=== PATIENT | female | born 1950 | race Caucasian/White ===

== ENCOUNTER 2022-01-29 13:43 | Outpatient (CLI) | payer MEDICARE, SELFPAY ==
[2022-01-29 17:07] LABS: Creatinine Urine 62.9 mg/dL
[2022-01-29 17:11] LABS: Albumin* 4.8 g/dL (3.3-5.0); Chloride* 98 mmol/L (96-114); Potassium* 4.3 mmol/L (3.6-5.1); Sodium* 134 mmol/L (135-149)
[2022-01-29 17:13] LABS: Microalbumin Creatinine Ratio 10 mg/g (0-30); Microalbumin Urine < 1 mg/dL
[2022-01-29 17:14] LABS: Blood Urea Nitrogen* 13 mg/dL (7-30); Carbon Dioxide* 27 mmol/L (20-32); Creatinine* 0.7 mg/dL (0.5-1.5); Estimated Glomerular Filt Rate 94 ml/min; Glucose* 91 mg/dL (60-115); Uric Acid* 5.3 mg/dL (2.2-8.4)
[2022-01-29 17:15] LABS: Calcium* 9.1 mg/dL (8.4-10.6); Phosphorus* 4.2 mg/dL (2.5-4.5)
== END 2022-01-29 13:44 | disposition home or self-care (01) ==
PROVIDERS: PCP Family Medicine; Visit Provider Internal Medicine Nephrology
DX: I10 Essential (primary) hypertension (principal); R79.89 Other specified abnormal findings of blood chemistry
CPT/HCPCS: 80069; 82043; 82570; 84550

== ENCOUNTER 2022-01-30 15:33 | Outpatient (CLI) | payer MEDICARE, SELFPAY ==
--- NOTE | 2022-01-30 15:45 | CRLHL7_ITS ---
For Patients: As a result of the Century Cures Act, medical imaging exams and procedure reports are released immediately into your electronic medical record. You may view this report before your referring provider. If you have questions, please contact your health care provider. CLINICAL HISTORY: PRIMARY HYPERTENSION COMPARISON: none TECHNIQUE: Munoz scale and color Doppler images were acquired of the kidneys and urinary bladder. FINDINGS: Sonographic images reveal a symmetric appearance of the kidneys. There is no evidence of hydronephrosis, mass or calculus. The right kidney measures 10.9cm in length and the left kidney measures 9.9cm in length. The renal cortex appears of normal thickness. Normal color Doppler flow to both kidneys. The urinary bladder appears normal. There is no evidence of bladder calculi or diverticula. Right adnexal cystic structure is partially visualized measuring approximately 5 cm. IMPRESSION: Normal renal ultrasound. Right adnexal cystic lesion measuring approximately 5 cm. Pelvic ultrasound recommended. Dictated by Eddie Guzmán MD @ 01/31/2022 9:45:38 AM (Electronically Signed)
== END 2022-01-30 15:34 | disposition home or self-care (01) ==
PROVIDERS: PCP Family Medicine; Visit Provider Internal Medicine Nephrology
DX: I10 Essential (primary) hypertension (principal)
CPT/HCPCS: 76775

== ENCOUNTER 2022-02-04 08:07 | Outpatient (CLI) | payer MEDICARE, SELFPAY ==
[2022-02-11 14:43] LABS: Hours Collected 24 hr; Total Volume 3300 mL; Urine Supersaturation Interp Normal; pH, Urine 6.58 (5.00-7.50)
== END 2022-02-04 08:08 | disposition home or self-care (01) ==
LOC: NFLDREF 08:07
PROVIDERS: PCP Family Medicine; Visit Provider Family Medicine
DX: I10 Essential (primary) hypertension (principal)
CPT/HCPCS: 82340; 82436; 82507; 83735; 83945; 83986; 84105; 84133; 84300; 84392; 84560

== ENCOUNTER 2022-03-11 15:22 | Outpatient (CLI) | payer MEDICARE, SELFPAY ==
[2022-03-11 10:07] LABS: Albumin* 4.6 g/dL (3.3-5.0); Chloride* 101 mmol/L (96-114)
[2022-03-11 10:08] LABS: Potassium* 3.9 mmol/L (3.6-5.1); Sodium* 139 mmol/L (135-149)
[2022-03-11 10:10] LABS: Cholesterol* 314 mg/dL (90-199)
[2022-03-11 10:11] LABS: Alanine Aminotransferase* 59 U/L (4-35); Alkaline Phosphatase* 83 U/L (40-150); Aspartate Amino Transferase* 23 U/L (12-35); Bilirubin Total* 0.7 mg/dL (0.1-1.5); Blood Urea Nitrogen* 23 mg/dL (7-30); Calcium* 9.8 mg/dL (8.4-10.6); Carbon Dioxide* 29 mmol/L (20-32); Creatinine* 0.9 mg/dL (0.5-1.5); Estimated Glomerular Filt Rate 69 ml/min; Glucose* 103 mg/dL (60-115); Total Protein* 6.9 g/dL (6.0-8.3); Triglycerides* 211 mg/dL (40-149)
[2022-03-11 10:12] LABS: HDL Cholesterol* 69 mg/dL (>=50); LDL Cholesterol Calculated 203 mg/dL (<100)
[2022-03-11 10:52] LABS: Vitamin D 25 Hydroxy* 35 ng/mL (30-80)
== END 2022-03-11 15:23 | disposition home or self-care (01) ==
PROVIDERS: PCP Family Medicine; Visit Provider Family Medicine
DX: Z00.00 Encounter for general adult medical examination without abnormal findings (principal); K76.0 Fatty (change of) liver, not elsewhere classified; I10 Essential (primary) hypertension; M85.80 Other specified disorders of bone density and structure, unspecified site; E78.5 Hyperlipidemia, unspecified; E55.9 Vitamin D deficiency, unspecified; R79.89 Other specified abnormal findings of blood chemistry
CPT/HCPCS: 80053; 80061; 80076; 82306

== ENCOUNTER 2022-03-27 15:18 | Outpatient (CLI) | payer MEDICARE, SELFPAY ==
--- NOTE | 2022-03-27 15:30 | CRLHL7_ITS ---
For Patients: As a result of the Cures Act, medical imaging exams and procedure reports are released immediately into your electronic medical record. You may view this report before your referring provider. If you have questions, please contact your health care provider. DXA BONE MINERAL DENSITY STUDY, 03/27/2022 Reason for exam: Osteopenia. Current height (inches): 61.5 Weight (lbs.): 148.0 Menopause age: 58 Ethnicity: White 1. Have you had a previous hip or vertebral fracture? No. 2. Have you had any fractures during your adult life which did not result from significant trauma (e.g., auto accident)? No. 3. Did either of your parents have a hip fracture? No. 4. Do you smoke? No. 5. Have you ever taken Glucocorticoids? No. 6. Do you have rheumatoid arthritis? No. 7. Do you have secondary osteoporosis? No. 8. Do you drink 3 or more alcoholic drinks per day? No. 9. Are you being treated for osteoporosis? No. 10. Have you ever taken any of the following medications: Actonel, Evista, Fosamax, Miacalcin, Reclast, Boniva, Forteo, HRT (i.e., estrogen/hormone therapy), Protelos, Prolia, Vitamin D, Calcium, other ??? please specify. ANSWER: Yes; vitamin D and calcium. 11. Do you have any of the following medical conditions: Anorexia or bulimia, asthma or emphysema, end stage renal disease, hyperparathyroidism, any seizure disorders, cancer, inflammatory bowel diseases, hysterectomy, other ??? please specify. ANSWER: Yes; hysterectomy. 12. What was your maximum height (inches)? 65.5. 13. Do you perform weight bearing exercise regularly? No. 14. Do you regularly consume dairy products? No. 15. Do you drink caffeinated beverages? No. 16. At what age did your period start? 15. 17. Are you premenopausal? No. 18. How many full-term pregnancies have you had? 2. 19. Have you ever missed your period for more than 6 months in a row (not including or menopause)? No. TECHNIQUE: Bone mineral density study was performed using the [employer]. FINDINGS: The results of the study expressed as bone mineral density (BMD) are as follows: Lumbar Spine L1 to L4: BMD: 0.833 g/cm2. T-score: -1.9. Z-score: 0.1. Neck Left: BMD: 0.605 g/cm2. T-score: -2.2. Z-score: -0.4. Right: BMD: 0.598 g/cm2. T-score: -2.3. Z-score: -0.5. Total Left: BMD: 0.799 g/cm2. T-score: -1.2. Z-score: 0.3. Right: BMD: 0.722 g/cm2. T-score: -1.8. Z-score: -0.3. IMPRESSION: Osteopenia. COMPARISON: Compared with scan of 01/13/2020, the bone mineral density has increased by 6.6% at the spine and increased by 3.4% at the hip. Compared with scan of 07/13/2015, the bone mineral density has decreased by 7.6% at the spine and decreased by 2.1% at the hip. *Comparison exams done prior to 10/2019 were performed on different unit, [employer]. FRAX 10-year Fracture Risk Major Osteoporotic Fracture: 13% Hip Fracture: 2.7% Reported Risk Factors: [place] () Neck BMD = 0.598, BMI = 27.5 HENNY QUAN M.D. Diagnostic/Nuclear Medicine Radiologist [email or web address] Transcribed: 12:[address]/Dictated by: Henny Quan MD @ 03/28/2022 11:35:00 AM (Electronically Signed)
== END 2022-03-27 15:19 | disposition home or self-care (01) ==
LOC: RAD 15:19
PROVIDERS: PCP Family Medicine; Visit Provider Family Medicine
DX: M85.89 Other specified disorders of bone density and structure, multiple sites (principal)
CPT/HCPCS: 77080

== ENCOUNTER 2022-04-29 16:08 | Outpatient (CLI) | payer MEDICARE, SELFPAY ==
[2022-04-29 18:14] LABS: Chloride* 103 mmol/L (96-114); Sodium* 141 mmol/L (135-149)
[2022-04-29 18:15] LABS: Potassium* 3.9 mmol/L (3.6-5.1)
[2022-04-29 18:17] LABS: Creatinine* 0.8 mg/dL (0.5-1.5); Estimated Glomerular Filt Rate 80 ml/min
[2022-04-29 18:18] LABS: Blood Urea Nitrogen* 20 mg/dL (7-30); Calcium* 9.8 mg/dL (8.4-10.6); Carbon Dioxide* 29 mmol/L (20-32); Glucose* 88 mg/dL (60-115)
== END 2022-04-29 16:09 | disposition home or self-care (01) ==
LOC: NFLDREF 16:08
PROVIDERS: PCP Family Medicine; Visit Provider Family Medicine
DX: Z01.818 Encounter for other preprocedural examination (principal)
CPT/HCPCS: 80048

== ENCOUNTER 2022-05-06 07:45 | Outpatient (CLI) | payer MEDICARE, SELFPAY ==
--- NOTE | 2022-05-06 09:37 | W.ANESCHARGE ---
Anesthesia Charges Start Date/Time Anesthesia Start Date: 05/06/22 Anesthesia Start Time: 09:00 Stop Date/Time Anesthesia Stop Date: 05/06/22 Anesthesia Stop Time: 09:32 Summary Emergency: No
--- NOTE | 2022-05-06 10:58 | W.ANESCHARGE ---
Anesthesia Charges Start Date/Time Anesthesia Start Date: 05/06/22 Anesthesia Start Time: 09:00 Stop Date/Time Anesthesia Stop Date: 05/06/22 Anesthesia Stop Time: 09:32 Summary Emergency: No
== END 2022-05-06 07:46 | disposition home or self-care (01) ==
LOC: OP CLINIC 07:45
PROVIDERS: PCP Family Medicine; Visit Provider Internal Medicine Gastroenterology
DX: Z12.11 Encounter for screening for malignant neoplasm of colon (principal); K63.5 Polyp of colon; Z86.010 Personal history of colon polyps
CPT/HCPCS: 00811; 45385; 88305; J2704

== ENCOUNTER 2022-06-05 13:32 | Outpatient (CLI) | payer MEDICARE, SELFPAY ==
--- NOTE | 2022-06-05 13:40 | CRLHL7_ITS ---
For Patients: As a result of the Century Cures Act, medical imaging exams and procedure reports are released immediately into your electronic medical record. You may view this report before your referring provider. If you have questions, please contact your health care provider. BILATERAL SCREENING MAMMOGRAM WITH COMPUTER-AIDED DETECTION TECHNIQUE: CC and MLO views were obtained. These mammographic images have been obtained using full-field digital technique. These mammographic images were interpreted with the benefit of computer-aided detection. COMPARISON FILM: 03/30/21, 01/13/20, 08/24/18. FINDINGS: There are scattered areas of fibroglandular density. IMPRESSION: There is no radiographic evidence for malignancy. ASSESSMENT: BI-RADS Category 2: Benign RECOMMENDATION: Routine screening mammogram in 1 year. A lay language report of this examination will be provided to the patient. Eddie Guzmán M.D. Diagnostic Radiologist [email or web address] Transcribed: 12:06 p.m. PT/Dictated by: Eddie Guzmán MD @ 06/06/2022 8:59:00 AM (Electronically Signed)
== END 2022-06-05 13:33 | disposition home or self-care (01) ==
LOC: MAMMO 13:35
PROVIDERS: PCP Family Medicine; Visit Provider Family Medicine
DX: Z12.31 Encounter for screening mammogram for malignant neoplasm of breast (principal)
CPT/HCPCS: 77067

== ENCOUNTER 2022-06-13 07:20 | Outpatient (CLI) | payer MEDICARE, SELFPAY ==
[2022-06-13 12:47] LABS: Albumin* 4.7 g/dL (3.3-5.0)
[2022-06-13 12:49] LABS: Cholesterol* 257 mg/dL (90-199)
[2022-06-13 12:50] LABS: Alanine Aminotransferase* 61 U/L (4-35); Alkaline Phosphatase* 75 U/L (40-150); Aspartate Amino Transferase* 37 U/L (12-35); Bilirubin Direct* 0.2 mg/dL (0.0-0.5); Bilirubin Total* 0.8 mg/dL (0.1-1.5); HDL Cholesterol* 88 mg/dL (>=50); LDL Cholesterol Calculated 141 mg/dL (<100); Triglycerides* 142 mg/dL (40-149)
== END 2022-06-13 07:21 | disposition home or self-care (01) ==
LOC: NFLDREF 07:20
PROVIDERS: PCP Family Medicine; Visit Provider Family Medicine
DX: E78.5 Hyperlipidemia, unspecified (principal); K76.0 Fatty (change of) liver, not elsewhere classified; I10 Essential (primary) hypertension; R79.89 Other specified abnormal findings of blood chemistry
CPT/HCPCS: 80061; 80076

== ENCOUNTER 2023-02-19 07:34 | Outpatient (CLI) | payer MEDICARE, SELFPAY | END 2023-02-19 07:35 | disposition home or self-care (01) | LOC: NFLDREF 14:43 | PROVIDERS: PCP Family Medicine; Referring Provider Family Medicine; Visit Provider Family Medicine | DX: Z00.00 Encounter for general adult medical examination without abnormal findings (principal); E78.5 Hyperlipidemia, unspecified; I10 Essential (primary) hypertension; E55.9 Vitamin D deficiency, unspecified; M85.80 Other specified disorders of bone density and structure, unspecified site | CPT/HCPCS: 80053; 80061; 82306 ==

== ENCOUNTER 2024-03-19 10:22 | Outpatient (CLI) | payer MEDICARE, BC, SELFPAY ==
--- OUTSIDE RECORDS SUMMARY | 2024-03-19 15:02 | XMS_ITS | Clinical Summary ---
Author Organization [facility] Address [address] [place] [address] Care Team Providers Care Appointment Manager Name Role Phone Jennifer Gurber APRN, C.N.P., D.N.P. Primary Car e Provider Source Comments Patient records contain information from all sites at [facility]. For routine questions regarding patient records, call [phone] during business hours, M-F 8:00 AM - 5:00 PM Central Time. Record requests for emergency care only can be directed to [phone] at any time.[facility] Allergies Active Allergy Reactions Criticality Noted Date Comments Allergenic Extracts Other (see comments) 2017 Itchy eyes and sneezing. Morphine Nausea And Vomiting Low 01/11/2015 Medications atenoloL (TENORMIN) 25 mg tablet Take 25 mg by mouth. 03/03/2018 Active hydroCHLOROthia zide (HYDRODIURIL) 25 mg tablet None Entered Acti ve amLODIPine (NORVASC) 5 mg tablet Take 1 tablet (5 mg total) by mouth daily. 90 tablet 3 03/13/2022 Active Active Problems Problem Noted Date Diagnosed Date Limitation Of Motion Shoulder Joint 06/24/2018 Fracture Humerus Greater Tub erosity Nondisplaced Subsequent With Routine Healing Left 12/31/2017 Polyp Colon Adenomatous 01/12/2015 Overview (02/11/2022): Colonoscopy 12/2014 polyp repeat in 5 years Encounters Date Type Department Care Team Description 01/20/2024 Orders Only [facility] Jennifer Gruber, RN PHYSICIAN OFFICE, C.N.P., D.N.P. Screening Examination Diabetes Mellitus from Last 3 Months Immunizations Name Administration Dates Next Due PCV13 12/02/2014 PPSV23 12/01/2019 Tdap 03/23/2015 Social History Tobacco Use Types Packs/Day Years Used Date Smoking Tobacco: Never Smokeless Tobacco: Never Tobacco Cessation:Counseling Given: Not Answered Alcohol Use Standard Drinks/Week Comments Never 0 (1 standard drink = 0.6 oz pur e alcohol) Nutrition Answer Date Recorded Nutrition: EVOO Fat Source Unknown 01/23 Nutrition: Servings of Fruits/Vegetables per Day Not on file 01/23/2022 Dental Answer Date Recorded Dental: Regular Dentist Unknown 01/24/20 Comments Unknown Sex and Gender Information Value Date Recorded Sex Assigned at Not on file Legal Sex Female 2:27 AM EXAM PROCTOR Gender Identity Not on file Sexual Orientation Not on file Plan of Treatment Health Maintenance Due Date Last Done Comments Bone Density Scan (Osteoporosis Screen) 1952 CT Colonography 1952 Cologuard 1952 Colonoscopy 1952 Colorectal Cancer Surveillance 1952 Fasting Glucose for Diabetes Screening 1950 Hepatitis C Screening 1950 Mammogram 1952 Visit: Medicare Annual Wellness 1952 Zoster Vaccines (1 of 2) 2002 Visit: Annual, age 65+ (or Medicare and <65) 02/11/2023 02/11/2022 Depression Screening (Annual PHQ-2) 05/19/2023 Fall Risk Screen (Annual) 05/19/2023 COVID-19 Vaccine (3 - 2023-2 5 season) 2024 08/15/2020, 07/25/2020 Influenza Vaccine (#1) 2024 DTaP,Tdap,and Td Vaccines (2 - Td or Tdap) 03/23/2025 03/23/2015 Pneumococcal vaccine (65+ years) Completed 12/01/2019, 12/02/2014 IPV Vaccines Aged Out No longer eligi ble based on patient's age to complete this topic Insurance MEDICARE Care Teams Appointment Manager Relationship Specialty Start Date End Date Jennifer Gruber APRN, C.N.P., D.N.P. [address] [place] [phone] PCP - General 05/01/23
--- OUTSIDE RECORDS SUMMARY | 2024-03-19 15:02 | XMS_ITS | Encounter Summary ---
Author Organization [facility] Address [address] [place] [address] Care Team Providers Care Store Sales Leader Name Role Phone Jennifer Gruber APRN, C.N.P., D.N.P. Primary Car e Provider Encounter Details Date Type Department Care Team (Late st Contact Info) Description 01/20/2024 Orders Only [facility] Jennifer Gruber APRN, C.N.P., D.N.P. [address], [place] [phone] Screening Examination Diabetes Mellitus Social History Tobacco Use Types Packs/Day Years Used Date Smoking Tobacco: Never Smokeless Tobacco: Never Alcohol Use Standard Drinks/Week Comments Never 0 (1 standard drink = 0.6 oz pur e alcohol) Nutrition Answer Date Recorded Nutrition: EVOO Fat Source Unknown 01/23 Nutrition: Servings of Fruits/Vegetables per Day Not on file 01/23/2022 Dental Answer Date Recorded Dental: Regular Dentist Unknown 01/24/20 22 Comments Unknown Sex and Gender Information Value Date Recorded Sex Assigned at Not on file Legal Sex Female 2:27 AM PATENT PROSECUTION ATTORNEY Gender Identity Not on file Sexual Orientation Not on file documented as of this encounter Plan of Treatment Scheduled Orders Name Type Priority Associated Diagnoses Orde r Schedule Glucose, Fasting Lab Routine Screening Examination Diabetes Mellitus Expected: 02/03/2024, Expires: 07/18/2024 documented as of this encounter Visit Diagnoses Diagnosis Screening Examination Diabetes Mellitus documented in this encounter Care Teams Store Sales Leader Relationship Specialty Start Date End Date Jennifer Grubre APRN, C.N.P., D.N.P. [address] [place] [phone] PCP - General 05/01/23 documented as of this encounter
--- OUTSIDE RECORDS SUMMARY | 2024-03-19 15:02 | XMS_ITS | Clinical Summary ---
Author Organization [facility] Address [place], [place] [address] Care Team Providers Care Crop Research Scientist Name Role Phone Judith Gorves MD Primary Care Provider + Allergies Active Allergy Reactions Criticality Noted Date Comments Allergenic Extracts Other - Describe In Comment Field 12/04/2017 Itchy eyes and sneezing. Morphine Nausea And Vomiting Low 01/11/2015 Medications Medication Sig Dispensed Refills Start Date End Date Status HYDROCHLOROTHIAZIDE 12.5 MG HALF TAB None Entered Act frida atenolol (TENORMIN) 25 mg tablet Take 25 mg by mouth once daily. 2 03/03/2018 Active polyethylene glycol-electrolyte (GOLYTELY) 236-22.74-6.74 -5.86 gram suspensionIndication s:Encounter for screening colonoscopy Drink 2 liters (half the bottle) the day before colonoscopy and 2 liters (remaining prep) 6 hours prior to colonoscopy appointment. 4000 mL 03/19/2022 Active Active Problems Problem Noted Date Diagnosed Date Closed fracture of head of r ight humerus with routine healing 07/27/2019 S/P shoulder manipulation surgery 07/21/2018 Limited range of motion (ROM) of shoulder 2018 S/P ORIF (open reduction internal fixation) frac ture 01/28/2018 Closed nondisplaced fracture of greater tuberosity of left humerus with routine healing 12/31/2017 Adenomatous colon polyp 01/12/2015 Overview (05/08/2022): Colonoscopy 12/2014 polyp repeat in 5 years Colonoscopy 04/2022 TA, repeat in 7 years, propofol Status post open reduction w ith internal fixation of fracture Social History Tobacco Use Types Packs/Day Years Used Date Smoking Tobacco: Never Smokeless Tobacco: Never Alcohol Use Standard Drinks/Week Comments No 0 (1 standard drink = 0.6 oz pur e alcohol) Sex and Gender Information Value Date Recorded Sex Assigned at Not on file Gender Identity Not on file Sexual Orientation Not on file Obstetrics History Last Filed Vital Signs Vital Sign Reading Time Taken Comments Blood Pressure 146/88 06/25/2019 12:39 AM BENEFITS COORDINATOR Pulse 69 06/24/2019 10:35 PM BENEFITS COORDINATOR Temperature 36.7 ??C (98 ??F) 06/24/2019 10:35 PM BENEFITS COORDINATOR Respiratory Rate 16 06/24/2019 10:35 PM BENEFITS COORDINATOR Oxygen Saturation 96% 06/24/2019 10:35 PM BENEFITS COORDINATOR Inhaled Oxygen Concentration - - Weight 69.9 kg (154 lb 3.2 oz) 07/27/2019 1:35 P M CDT Height 157.5 cm (5' 2.01) 07/27/2019 1:35 PM CD T Body Mass Index 28.2 07/27/2019 1:35 PM CDT Plan of Treatment Health Maintenance Due Date Last Done Comments Tdap 08/28/1963 Depression screening for age 12+ 1964 Hepatitis C screening for ag e 18-79 1970 Tetanus booster 1972 Lipids for age 45-75 1997 Zoster (shingles) series for age 50+ (1 of 2) 2002 Mammogram for age 45-75 12/29/2015 12/29/19 15, 06/16/2008, 05/01/2007, Additional history exists DEXA/DXA scan for age 65+ 2017 Medicare Wellness for age 65+ 2017 Pneumococcal series for age 65+ (1 of 1 - PCV) 2017 BMI (ht and wt on same day) for age 18+ 07/26/2020 07/27/2019, 06/29/2019, 12/23/2018, Additional history exists COVID-19 vaccine series (2023- season) 2024 08/15/2020, 07/25/2020 Influenza for age 65+ 01/18/2024 Colonoscopy through age 75 05/06/202905/06, 05/06/2022, 01/11/2015 Medical Devices Implanted Type Area Associate Professor Computer Science Device Identifier Shelf Expiration Date Model / Serial / Lot [id number] - [id number] Implanted:Qty: 1 on 12/08/2017 by Everette Yu MD at [facility] Left: Humerus [employer] 03/19/2019 [id number] / / [id number] Description:Hydroset [id number] - [id number] Implanted:Qty: 3 on 12/08/2017 by Everette Yu MD at [facility] Left: Humerus [employer] [id number] / / Description:4.0mm locking sc rews, self tapping [id number] Implanted:Qty: 1 on 12/08/2017 by Everette Yu MD at [facility] Left: Humerus [id number] / / Description:4.0 mm Locking s crew, self tapping, length 42mm [id number] - [id number] Implanted:Qty: 1 on 12/08/2017 by Everette Yu MD at [facility] Left: [employer] [id number] / / Description:Proximal lateral humerus plate [id number] - [id number] Implanted:Qty: 1 on 12/08/2017 by Everette Yu MD at [facility] Left: [employer]umerus [employer] [id number] / / Description:4.0 mm cancellou s screw,fully threaded [id number] - [id number] Implanted:Qty: 1 on 12/08/2017 by Everette Yu MD at [facility] Left: Humerus [employer] [id number] / / Description:3.5mm cortical s crew, self tapping [id number] - [id number] Implanted:Qty: 1 on 12/08/2017 by Everette Yu MD at [facility] Left: [employer] [id number] / / Description:4.0mm locking sc rew,self tapping [id number] - [id number] Implanted:Qty: 1 on 12/08/2017 by Everette Yu MD at [facility] Left: [employer] [id number] / / Description:4.0mm locking sc rew, self tapping [id number] - [id number] Implanted:Qty: 2 on 12/08/2017 by Everette Yu MD at [facility] Left: [employer] [id number] / / Description:4.0mm locking sc rew,self tapping Explanted Type Area Associate Professor Computer Science Device Identifier Shelf Expiration Date Model / Serial / Lot [id number] - [id number] Explanted:Qty: 1 on 12/08/[address] [facility] Left: [employer] [id number] / / Description:3.5mm cortical s crew [id number] - [id number] Explanted:Qty: 1 on 12/08/[address] [facility] Left: [employer] [id number] / / Description:3.5 mm cortical screw Procedures Procedure Name Priority Date/Time Associated Diagnosis Comments COLONOSCOPY SCREENING Routine 05/06/2022 12:00 AM BENEFITS COORDINATOR Encounter for screening colonoscopy XR MAMMO BILAT SCREEN FFDM (IA) Routine 12/28/2014 9:52 AM CDT Other screening mammogram from Last 3 Months or Most Recently Relevant to Health Maintenance Results * COLONOSCOPY SCREENING (05/06/2022 12:00 AM BENEFITS COORDINATOR) Flo Arnett MD GI PROCEDURE ORD * XR MAMMO BILAT SCREEN FFDM (12/28/2014 9:52 AM CDT) Anatomical Region Laterality Modality BREASTS, Breast Left, Breast Right Bilateral Mammography Impressions 12/28/2014 12:26 PM CDT ??There is no radiographic evidence for malignancy. ??Recommend annual mammograms. A lay language report of this examination will be provided to the patient. MAMMOGRAM ASSESSMENT: ??ACR 2 Benign Narrative 12/28/2014 12:26 PM CDT XR MAMMO BILAT SCREEN FFDM [G0202.0] CLINICAL HISTORY: ??This is an asymptomatic 64 y.o. patient. INDICATION FOR EXAM: Mammogram Screening. TECHNIQUE: CC & MLO views were obtained. ??This digital study was evaluated with the assistance of Computer-Aided Detection. COMPARISON FILMS: Yes 06/16/08 [facility] 05/01/07 [facility] FINDINGS: ??Mammographically, the breast tissue is heterogeneously dense, which could obscure detection of small masses. ??No suspicious masses or microcalcifications. ??Benign appearing calcifications within both breasts. Darrin Morataya MD MAMMO from Last 3 Months or Most Recently Relevant to Health Maintenance Advance Directives * Full Code (Latest Code Status on File) Date Activated Date Inactivated Comments 07/06/2018 7:02 AM 07/06/2018 11:43 AM * Full Code Date Activated Date Inactivated Comments 12/08/2017 10:43 AM 12/09/2017 2:14 PM Question Answer Comments Code Status Discussion: Discussed Care Teams Crop Research Scientist Relationship Specialty Start Date End Date Judith Groves MD [address] [place] [id number] PCP - General Family Practice 12/02/17
--- OUTSIDE RECORDS SUMMARY | 2024-03-19 15:02 | XMS_ITS ---
Author Organization [facility] Address [address] [place] [address] Care Team Providers Care Track Leader Name Role Phone Unavailable Unavailable Unavailable Surgery Details Not on file Complications Check Surgery Details section. Procedure Estimated Blood Loss Check Surgery Details section. Procedure Findings Check Surgery Details section. Procedure Specimens Taken Check Surgery Details section.
--- OUTSIDE RECORDS SUMMARY | 2024-03-19 15:02 | XMS_ITS | Referral Summary ---
Author Organization [facility] Address [address] [place] [address] Care Team Providers Care Hospital Scientist Name Role Phone Jennifer Gruber APRN, C.N.P., D.N.P. Primary Car e Provider Source Comments Patient records contain information from all sites at [facility]. For routine questions regarding patient records, call [phone] during business hours, M-F 8:00 AM - 5:00 PM Central Time. Record requests for emergency care only can be directed to [phone] at any time.[facility] Encounters Date Type Department Care Team Description 01/20/2024 Orders Only [facility] Jennifer Gruber APRN, C.N.P., D.N.P. Screening Examination Diabetes Mellitus from Last 3 Months Allergies Active Allergy Reactions Criticality Noted Date [...] Colonoscopy 12/2014 polyp repeat in 5 years Immunizations Name Administration Dates Next Due PCV13 [...] on file Legal Sex Female 2:27 AM PSYCH COORDINATOR Gender Identity Not on file Sexual Orientation Not on file Plan of Treatment Not on file Insurance MEDICARE Care Teams Hospital Scientist Relationship Specialty Start Date End Date Jennifer Gruber APRN, C.N.P., D.N.P. [address] [place] [phone] PCP - General 05/01/23
== END 2024-03-19 10:23 | disposition home or self-care (01) ==
LOC: NFLDREF 15:01
PROVIDERS: PCP Family Medicine; Referring Provider Family Medicine; Visit Provider Family Medicine
DX: E78.5 Hyperlipidemia, unspecified (principal); E55.9 Vitamin D deficiency, unspecified; I10 Essential (primary) hypertension; R79.89 Other specified abnormal findings of blood chemistry; E78.00 Pure hypercholesterolemia, unspecified; K76.0 Fatty (change of) liver, not elsewhere classified; R73.01 Impaired fasting glucose
CPT/HCPCS: 80053; 80061; 82306

== ENCOUNTER 2024-06-23 08:01 | Outpatient (CLI) | payer MEDICARE, BC, SELFPAY ==
--- NOTE | 2024-06-23 08:15 | CRLHL7_ITS ---
For Patients: As a result of the Cures Act, medical imaging exams and procedure reports are released immediately into your electronic medical record. You may view this report before your referring provider. If you have questions, please contact your health care provider. BILATERAL SCREENING MAMMOGRAM WITH COMPUTER-AIDED DETECTION AND TOMOSYNTHESIS TECHNIQUE: CC and MLO views were obtained. These mammographic images have been obtained using full-field digital technique. These mammographic images were interpreted with the benefit of computer-aided detection. Breast Tomosynthesis was used in this interpretation. COMPARISON FILM: 06/05/22, 03/30/21, 01/13/20. FINDINGS: There are scattered areas of fibroglandular density IMPRESSION: There is no radiographic evidence for malignancy. ASSESSMENT: BI-RADS Category 1: Negative RECOMMENDATION: Routine screening mammogram in 1 year. A lay language report of this examination will be provided to the patient. Eddie Guzmán M.D. Diagnostic Radiologist [email or web address] Transcribed: 2:58 p.mEmanuel hutchison/Dictated by: Eddie Guzmán MD @ 06/23/2024 9:16:00 AM (Electronically Signed)
== END 2024-06-23 08:02 | disposition home or self-care (01) ==
LOC: MAMMO 08:02
PROVIDERS: PCP Family Medicine; Visit Provider Family Medicine
DX: Z12.31 Encounter for screening mammogram for malignant neoplasm of breast (principal)
CPT/HCPCS: 77063; 77067